=== PATIENT | female | born 1990 | race Two or more races ===

== ENCOUNTER 2018-08-07 19:50 | Emergency (ER) | payer OTHER ==
[~2018-08-07] VITALS: Ht 167.6 cm; Wt 115.7 kg
[2018-08-07 20:03] VITALS: BP 140/66
[2018-08-07 21:05] LABS: BILIRUBIN,URINE NEGATIVE (NEG); CLARITY,URINE CLEAR; COLOR,URINE YELLOW; NITRITE,URINE NEGATIVE (NEG); PH,URINE 5.5; PROTEIN,URINE NEGATIVE (NEG-TRACE); UROBILINOGEN,URINE 0.2 mg/dL (0.2 mg/dL)
[2018-08-07 21:22] LABS: BACTERIA,URINE 0 /HPF (0-FEW); RBC,URINE 0 /HPF (0-2); SQUAMOUS EPITHELIAL CELL,UR FEW /LPF; WBC,URINE 0 /HPF (0-4)
[2018-08-07 21:29] LABS: INFLUENZA A PATIENT NEGATIVE (NEGATIVE); INFLUENZA B PATIENT NEGATIVE (NEGATIVE)
[2018-08-07] MEDS ORDERED: AMOX500C PO (21:39)
--- NOTE | 2018-08-07 21:40 | PHYS DOC ---
Past Medical History Past Medical History: No Pertinent History Past Surgical History: No Surgical History, Other Additional Past Surgical Histo: LEAP procedure Alcohol Use: None Drug Use: None Adult General Chief Complaint Chief Complaint: MULTIPLE COMPLAINTS HPI HPI Patient is a 28 year old female who presents to the ER with complaints of a sore throat, fever, fatigue, body aches, nausea, diarrhea, and dry cough today. She denies any abdominal pain, shortness of breath, back pain, or chest pain. She states that she has not measured her temperature, she has just felt hot. She last took ibuprofen 4 hours ago. Review of Systems Review of Systems Constitutional: Reports tactile fever, body ahces, and chills [] Eyes: Denies change in visual acuity, redness, or eye pain [] HENT: reports nasal congestion and sore throat [] Respiratory: Denies wheezing or shortness of breath, reports dry cough Cardiovascular: No additional information not addressed in HPI [] GI: Denies abdominal pain, or vomiting; reports nausea and diarrhea [] : Denies dysuria or hematuria [] Integument: Denies rash or skin lesions [] Neurologic: Denies headache, focal weakness or sensory changes [] All other systems were reviewed and found to be within normal limits, except as documented in this note. Allergies Allergies Allergies Coded Allergies Type Severity Reaction Last Updated Verified No Known Drug Allergies 06/07/15 No Physical Exam Physical Exam Constitutional: Well developed, well nourished, no acute distress, non-toxic appearance. [] HENT: Normocephalic, atraumatic, bilateral external ears normal, bilateral TMs normal, erythema of posterior pharynx, 2+ tonsils bilat, oropharynx moist, no oral exudates, nose normal. [] Eyes: PERRLA, conjunctiva normal, no discharge. [] Neck: Normal range of motion, no tenderness, no stridor., mild cervical lymphadenopathy Cardiovascular:Heart rate regular rhythm, no murmur [] Lungs & Thorax: Bilateral breath sounds clear to auscultation [] Skin: Warm, dry, no erythema, no rash. [] Extremities: No cyanosis, no clubbing, ROM intact, no edema. [] Neurologic: Alert and oriented X 3, normal motor function, normal sensory function, no focal deficits noted. [] Psychologic: Affect normal, judgement normal, mood normal. [] Current Patient Data Vital Signs Vital Signs Date Time Temp Pulse Resp B/P (MAP) Pulse Ox O2 Delivery O2 Flow Rate FiO2 08/07/18 20:03 99.7 125 16 140/66 (90) 96 Room Air 99.7 Lab Values Laboratory Tests Test 08/07/18 20:30 08/07/18 20:40 08/07/18 20:48 Urine Collection Type Unknown Urine Color Yellow Urine Clarity Clear Urine pH 5.5 Urine Specific [place] 1.025 Urine Protein Negative mg/dL (NEG-TRACE) Urine Glucose (UA) Negative mg/dL (NEG) Urine Ketones (Stick) Negative mg/dL (NEG) Urine Blood Negative (NEG) Urine Nitrite Negative (NEG) Urine Bilirubin Negative (NEG) Urine Urobilinogen Dipstick 0.2 mg/dL (0.2 mg/dL) Urine Leukocyte Esterase Negative (NEG) Urine RBC 0 /HPF (0-2) Urine WBC 0 /HPF (0-4) Urine Squamous Epithelial Cells Few /LPF Urine Bacteria 0 /HPF (0-FEW) Urine Mucus Slight /LPF Influenza Type A Antigen Negative (NEGATIVE) Influenza Type B Antigen Negative (NEGATIVE) POC Urine HCG, Qualitative Hcg negative (Negative) EKG EKG [] Radiology/Procedures Radiology/Procedures rapid strep positive[] Course & Med Decision Making Course & Med Decision Making Pertinent Labs and Imaging studies reviewed. (See chart for details) Dx: strep pharyngitis, diarrhea Rx for amoxicillin. Recommend salt water gargles/swishes as needed. Discard toothbrush tomorrow and begin a new one. Tylenol or ibuprofen as needed for pain /fever. Increase clear fluids. Follow up with primary care doctor next week. Patient verbalized an understanding of home care, medications, follow-up, and return to ED instructions and was in agreement with the plan of care. [] Dragon Disclaimer Dragon Disclaimer This electronic medical record was generated, in whole or in part, using a voice recognition dictation system. Departure Departure Impression: Primary Impression: Strep sore throat Additional Impression: Diarrhea Disposition: 01 HOME, SELF-CARE Condition: STABLE Referrals: NUSRAT JUAREZ MD (PCP) Patient Instructions: Diarrhea, [id number], Diet for Diarrhea, Adult, Strep Throat, [id number] Additional Instructions: Fill prescription and use as directed. Recommend salt water gargles/swishes as needed. Discard toothbrush tomorrow and begin a new one. Tylenol or ibuprofen as needed for pain/fever. Increase clear fluids. Follow up with primary care doctor next week. Return to the ER if your symptoms worsen. Scripts Amoxicillin (AMOXICILLIN) 500 Mg Capsule 1 CAP PO BID, #20 CAP 0 Refills Prov: EVIE CHACKO APRN 08/07/18 Problem Qualifiers Additional Impression: Diarrhea Diarrhea type: unspecified type Qualified Codes: R19.7 - Diarrhea, unspecified EVIE CHACKO APRN Aug 07, 2018 21:40
== END 2018-08-07 21:50 | disposition home or self-care (01) ==
LOC: ER 19:50
DX: J02.0 Streptococcal pharyngitis (principal); R19.7 Diarrhea, unspecified; R53.83 Other fatigue; M79.10 Myalgia, unspecified site
CPT/HCPCS: 81001; 81025; 87804; 87880; 99284